=== PATIENT | male | born 1970 | race Caucasian/White ===

== ENCOUNTER 2016-06-08 10:33 | Emergency (ER) | payer OTHER ==
[2016-06-08 10:51] VITALS: BP 131/79; PULSE 91; TEMP 98.5; BMI 21.6
[2016-06-08] MEDS ORDERED: IBUPROFEN 400 MG TABLET (FP) PO ONE ×2 (12:00→12:03)
--- NOTE | 2016-06-08 12:07 | PDOC ---
History of Present Illness - General Chief Complaint: Cold Symptoms Stated Complaint: HEADACHES, SORE THROAT Time Seen by Provider: 06/08/16 11:42 History Source: Patient Exam Limitations: No Limitations - History of Present Illness Initial Comments: 06/08/16 12:05 46 yr male no medical history presents with headache, sore throat, body aches for 3 days.no diarrhea no abd pain or back jorge. Pt states he took ibuprofen yesterday. non smoker, no ETOh use. Past History - Past Medical History Allergies/Adverse Reactions: Allergies Allergy/AdvReac Type Severity Reaction Status Date / Time No Known Allergies Allergy Verified 06/08/16 10:52 Home Medications: Ambulatory Orders NK [No Known Home Medication] 06/08/16 Other medical history: DENIES - Surgical History Other Surgical History: 06/08/16 12:06 none - Immunization History Immunization Up to Date: Yes - Psycho/Social/Smoking Cessation Hx Anxiety: No Suicidal Ideation: No Smoking Status: No Smoking History: Never smoked Number of Cigarettes Smoked Daily: 0 Information on smoking cessation initiated: No Hx Alcohol Use: Yes (occasion) Respiratory Specific PMHX - Complaint Specific PMHX Angina: No Bronchitis: No Pneumonia: No Pulmonary Embolus: No TB (Tuberculosis): No Review of Systems - Review of Systems Able to Perform ROS?: Yes Is the patient limited Chadian proficient: No Constitutional: No: Symptoms Reported HEENTM: Yes: See HPI, Throat Pain. No: Symptoms Reported Respiratory: Yes: Symptoms reported, See HPI, Cough Cardiac (ROS): No: Symptoms Reported ABD/GI: No: Symptoms Reported : No: Symptoms Reported Musculoskeletal: No: Symptoms Reported Neurological: Yes: See HPI, Headache *Physical Exam - Vital Signs Last Vital Signs Temp Pulse Resp BP Pulse Ox 98.5 F 91 H 18 131/79 99 06/08/16 10:48 06/08/16 10:48 06/08/16 10:48 06/08/16 10:48 06/08/16 10:48 - Physical Exam General Appearance: Yes: Nourished, Appropriately Dressed HEENT: positive: EOMI, MARIELLA Neck: positive: Supple. negative: Tender, Rigidity Respiratory/Chest: positive: Lungs Clear, Normal Breath Sounds Cardiovascular: positive: Regular Rhythm, Regular Rate Gastrointestinal/Abdominal: positive: Normal Bowel Sounds, Soft Musculoskeletal: positive: Normal Inspection Extremity: positive: Normal Capillary Refill, Normal Inspection, Normal Range of Motion Integumentary: positive: Normal Color, Dry Neurologic: positive: Fully Oriented, Alert, Normal Mood/Affect, Normal Response , Motor Strength 10/09 Medical Decision Making - Medical Decision Making 06/08/16 12:08 cc: sore throat, cough , headache, body aches non toxic vitals are stable will give ibuprofen lungs CTA , no wheezing or rhonchi *DC/Admit/Observation/Transfer Diagnosis at time of Disposition: Primary cough headache - Discharge Dispostion Disposition: HOME Condition at time of disposition: Good - Referrals Referrals: Augusto May MD [Primary Care Provider] - - Patient Instructions Additional Instructions: drink pleanty of fluids increase vitamin C and Zinc take tylenol 650mg every 4-6hrs for headache you can also take ibuprofen 600mg every 6-8hrs for fever or body aches rest at home avoid crowds follow with your doctor in 3-4 days if not improving return to ER if any worsening symptoms - Post Discharge Activity
== END 2016-06-08 12:14 | disposition home or self-care (01) ==
LOC: JERFT 10:33
DX: G44.83 Primary cough headache (principal)
CPT/HCPCS: 99281-25

== ENCOUNTER 2019-02-27 20:22 | Emergency (ER) | payer OTHER ==
[2019-02-27 20:28] VITALS: BP 129/78; PULSE 72; TEMP 98.8; BMI 22.3
[2019-02-27] MEDS ORDERED: ACETAMINOPHEN 500 MG TABLET (FP) PO ONE (21:05)
--- NOTE | 2019-02-27 21:40 | PDOC ---
History of Present Illness - General Chief Complaint: Injury Stated Complaint: RIGHT FOOT INJURY Time Seen by Provider: 02/27/19 20:58 History Source: Patient Exam Limitations: No Limitations - History of Present Illness Initial Comments: 02/27/19 21:36 HISTORY OF PRESENT ILLNESS: This a 49-year-old male denies medical history of presents emergency department for evaluation of right ankle pain after playing soccer yesterday. Patient reports he went to kick the ball and accidentally stepped in a hole causing an eversion of his right foot. Patient was seen by her customer trainer who put a Obed wrap and makeshift splint on his ankle. He was told not to walk for 4 days and then to be reevaluated. Patient was concerned that he heard a crack and no x-rays were performed. Patient is having difficult time bearing weight on his right ankle since the injury. No recent travel or sick contacts. PAST MEDICAL HISTORY: Denies past medical history SURGICAL HISTORY: Denies ALLERGIES: No known drug allergies REVIEW OF SYSTEMS General/Constitutional: Denies fever or chills. Denies weakness, weight change. HEENT: Denies change in vision. Denies ear pain or discharge. Denies sore throat. Cardiovascular: Denies chest pain or shortness of breath. Respiratory: Denies cough, wheezing, or hemoptysis. Gastrointestinal: Denies nausea, vomiting, diarrhea or constipation. Denies rectal bleeding. Genitourinary: Denies dysuria, frequency, or change in urination. Musculoskeletal: see HPI Skin and breasts: Denies rash or easy bruising. Neurologic: Denies headache, vertigo, loss of consciousness, or loss of sensation. Psychiatric: Denies depression or anxiety. Endocrine: Denies increased thirst. Denies abnormal weight change. Hematologic/Lymphatic: Denies anemia, easy bleeding, or history of blood clots. Allergic/Immunologic: Denies hives or skin allergy. Denies latex allergy. PHYSICAL EXAM General Appearance: Well-appearing, appropriately dressed. No apparent distress , no intoxication. Respiratory/Chest: Lungs CTAB. No shortness of breath, chest tenderness, respiratory distress, accessory muscle use. No crackles, rales, rhonchi, stridor , wheezing, dullness Cardiovascular: RRR. S1, S2. No JVD, murmur, bradycardia, tachycardia. Vascular Pulses: Dorsalis-Pedis (R): 2+, Dorsalis-Pedis (L): 2+ Musculoskeletal/Extremities: Tender to palpation over the lateral malleolus of the right ankle. No palpable deformity, crepitus or step-off is present. Patient also with increased pain with palpation over the proximal fibula. Decreased range of motion with flexion and dorsiflexion of the right ankle. Full range of motion of the right knee. Neurovascularly intact. Integumentary: Appropriate color, dry, warm. No cyanosis, erythema, jaundice or rash Neurologic: song writer II-XII intact. Fully oriented, alert. Appropriate mood/affect. Motor strength 5/5. No appreciable EOM palsy, facial droop or sensory deficit. Past History - Past Medical History Allergies/Adverse Reactions: Allergies Allergy/AdvReac Type Severity Reaction Status Date / Time No Known Allergies Allergy Verified 03/01/19 09:08 Home Medications: Ambulatory Orders Ibuprofen 1 tab PO DAILY 03/01/19 COPD: No - Immunization History Immunization Up to Date: Yes - Psycho Social/Smoking Cessation Hx Smoking Status: No Smoking History: Never smoked Number of Cigarettes Smoked Daily: 0 Hx Alcohol Use: Yes (occasion) *Physical Exam - Vital Signs Last Vital Signs Temp Pulse Resp BP Pulse Ox 98.8 F 72 18 129/78 95 02/27/19 20:26 02/27/19 20:26 02/27/19 20:26 02/27/19 20:26 02/27/19 20:26 Procedures - Consent Consent obtained: Verbal, From Patient - Splinting Splint Location: Right: Ankle Pre-Proc Neuro Vasc Exam: normal Hand-Made Type: orthoglass Splint Type: Yes: Sugar Tong (right ankle) Post-Proc Neuro Vasc Exam: normal, unchanged from pre-exam Complications: No ED Treatment Course - RADIOLOGY Radiology Studies Ordered: Category Date Time Status ANKLE & FOOT-RIGHT* [RAD] Stat Radiology 02/27/19 21:05 Ordered LEG TIB/FIB-RIGHT [RAD] Stat Radiology 02/27/19 21:05 Ordered Medical Decision Making - Medical Decision Making 02/27/19 21:39 A/P: 49-year-old male right ankle pain status post eversion of the right foot Based on physical exam, there is a high likelihood of a fracture. X-ray of the right ankle, foot and tib-fib Tylenol 1g orally now Reassess 02/27/19 21:40 02/27/19 22:01 X-rays as read by Dr. Osborne: Fracture distal fibula with tibial talo dislocation. Splint-see procedure note for details Discharge home to follow-up with orthopedist within the next 24 hours. 02/27/19 22:18 *DC/Admit/Observation/Transfer Diagnosis at time of Disposition: Fibula fracture Qualifiers: Encounter type: initial encounter Fibula location: distal Fracture type: closed Fracture morphology: unspecified fracture morphology Laterality: right Qualified Code(s): S82.831A - Other fracture of upper and lower end of right fibula, initial encounter for closed fracture - Discharge Dispostion Disposition: HOME Condition at time of disposition: Stable Decision to Admit order: No - Referrals Referrals: Augusto May MD [Primary Care Provider] - Evangelista Daly MD [Staff Physician] - - Patient Instructions Additional Instructions: Rest. Take Tylenol or Motrin as needed for pain. Follow manufacturers instructions for appropriate dosage. Whenever possible keep your foot elevated. You've been given the number for an orthopedist. You must be evaluated on 02/28. Return to emergency department for discoloration of the foot, numbness or tingling to the foot, worsening pain, or any other concerns. Thank you very much for choosing us to provide your emergent healthcare needs. - Post Discharge Activity Discharge - Discharge Information Problems reviewed: Yes Clinical Impression/Diagnosis: Fibula fracture Qualifiers: Encounter type: initial encounter Fibula location: distal Fracture type: closed Fracture morphology: unspecified fracture morphology Laterality: right Qualified Code(s): S82.831A - Other fracture of upper and lower end of right fibula, initial encounter for closed fracture Condition: Stable Disposition: HOME - Follow up/Referral Referrals: Evangelista Daly MD [Staff Physician] - Augusto May MD [Primary Care Provider] - - Patient Discharge Instructions Additional Instructions: Rest. Take Tylenol or Motrin as needed for pain. Follow manufacturers instructions for appropriate dosage. Whenever possible keep your foot elevated. You've been given the number for an orthopedist. You must be evaluated on 02/28. Return to emergency department for discoloration of the foot, numbness or tingling to the foot, worsening pain, or any other concerns. Thank you very much for choosing us to provide your emergent healthcare needs. - Post Discharge Activity
[2019-02-27] MEDS ORDERED: ACETAMINOPHEN 500 MG TABLET (FP) ONE (21:42)
== END 2019-02-27 22:18 | disposition home or self-care (01) ==
LOC: JERFT 20:22
PROC: 2W3QX1Z Immobilization of Right Lower Leg using Splint (ICD-10-PCS; principal; 2019-02-27)
DX: S82.831A Other fracture of upper and lower end of right fibula, initial encounter for closed fracture (principal); X50.1XXA Overexertion from prolonged static or awkward postures, initial encounter; Y93.66 Activity, soccer; Y92.322 Soccer field as the place of occurrence of the external cause; Y99.8 Other external cause status
CPT/HCPCS: 73590-TC-RT-FY; 73610-TC-RT-FY; 73630-TC-RT-FY; 99283-25

== ENCOUNTER 2019-03-02 08:16 | Day surgery (SDC) | payer OTHER ==
[2019-03-01 09:13] VITALS: BMI 22.3
[2019-03-02] MEDS ORDERED: ROPIVACAINE HCL 0.5% 30ML VIAL ONE (08:51)
[2019-03-02] MEDS ORDERED: MIDAZOLAM HCL 2 MG/2 ML SINGLE DOSE VIAL ONE ×3 (08:51→11:22)
[2019-03-02] MEDS ORDERED: oxyCODONE HCL 5 MG TABLET PO PRN ×2 (08:52)
[2019-03-02] MEDS ORDERED: ONDANSETRON 4 MG/2 ML VIAL IVPUSH PRN (08:52)
[2019-03-02] MEDS ORDERED: LACTATED RINGERS SOLUTION 1,000 ML IV SCH (09:00)
[2019-03-02] MEDS ORDERED: DEXAMETHASONE SOD PHOSPHATE/PF 10 MG/ML SDV ONE (09:49)
[2019-03-02] MEDS ORDERED: KETOROLAC TROMETHAMINE 30 MG/1 ML VIAL ONE (10:22)
[2019-03-02] MEDS ORDERED: DEXAMETHASONE SOD PHOSPHATE 4 MG/1 ML VIAL ONE (10:22)
[2019-03-02] MEDS ORDERED: ceFAZolin SODIUM 1 GM VIAL ONE (10:26)
[2019-03-02] MEDS ORDERED: ACETAMINOPHEN 1000 MG/100 ML VIAL (NON FORMULARY) IVPB ONE (12:15)
[2019-03-02] MEDS ORDERED: ACETAMINOPHEN INJECTION 100 ML IVPB ONE (12:54)
--- NOTE | 2019-03-02 13:22 | OP ---
Operative Note - Note: Operative Date: 03/02/19 Pre-Operative Diagnosis: right distal fibular fracture Operation: right distal fibula ORIF Implants: arthrex distal fibular plate Post-Operative Diagnosis: Same as Pre-op Surgeon: Chauncey Mireles Anesthesiologist/CLINICAL QUALITY ANALYST: Jero Perry Anesthesia: Spinal, Fractional Estimated Blood Loss (mls): 50 Operative Report Dictated: Yes
[2019-03-02 13:47] VITALS: TEMP 98.3
--- NOTE | 2019-03-02 14:05 | OP ---
DATE OF OPERATION: 03/02/2019 PREOPERATIVE DIAGNOSIS: Right distal fibular fracture. POSTOPERATIVE DIAGNOSIS: Right distal fibular fracture. PROCEDURE: Right distal fibula open reduction internal fixation. SURGEON: Chauncey Mireles MD OCEANOGRAPHER GEOLOGICAL: None. IMPLANTS: Arthrex distal fibular plate with 2.7-mm locking and 3.5-mm nonlocking screws as well as 1 x 4.0 cannulated screw. ANESTHESIA: Spinal plus regional. POSTOPERATIVE CONDITION: Stable. COMPLICATIONS: None. BLOOD LOSS: 50 mL. INDICATIONS: This is a pleasant 49-year-old gentleman who injured his ankle when he was playing soccer. He was found to have an ankle fracture along with subluxation of the ankle joint. Treatment options including nonoperative versus operative management were reviewed. Operative risks were reviewed in detail including bleeding, infection, neurovascular injury, need for further surgery, postoperative pain and stiffness, nonunion, malunion, hardware failure or cut out. We discussed medical risks such as heart attack, stroke, DVT, PE, and . I addressed the use of perioperative antibiotic and DVT prophylaxis. I reviewed the postoperative rehabilitation protocol. I addressed all of the patient's questions regarding the surgery. We reviewed the use of perioperative antibiotic and DVT prophylaxis. Patient voiced understanding and elected to proceed. DESCRIPTION OF PROCEDURE: Patient was brought to the operating room where spinal anesthetic was administered. He had previously been given a block in the preoperative holding area. The left lower extremity was now prepped and draped in the usual sterile fashion. A preoperative dose of antibiotics was given, and the usual time-out procedure was performed. Incision was now planned out over the fibular fracture in line with the fibula. Distally, this was carried full thickness and more proximally just through the skin to the subcutaneous tissue. Blunt spreading was then proximally to expose the fracture site. The fracture was noted to be widely displaced. The fracture site was irrigated. Utilizing a 15 blade, the periosteum was elevated anteriorly and posteriorly. Initially, an attempt was made at reducing the fracture. However, it failed to adequately reduce, and the mortis was sitting in an unreduced position. Multiple attempts were made; however, these were unsuccessful. The decision was now made to inspect the joint medially. An incision was now planned out over the medial gutter. This was carried down through the skin to subcutaneous tissue. Spreading was now used to dissect through the subcutaneous tissue and expose the capsule, which was already injured from the subluxation. The joint was inspected here, and there was no loose body or tendon subluxation seen. The talus was now reduced to fully medial; however, the fibula would still not reduce into its anatomic location. The attention was then turned back laterally. The lateral malleolar fragment was then pushed posterior, and the ankle was subluxed posteriorly. A finger was used to inspect the posterior aspect of the joint. Here, the fragment at the posterior malleolus was noted to be stuck within the joint. After freeing up this fragment, it was possible to reduce the fibula anatomically. It should be noted that prior to making the medial incision, the tourniquet was inflated to 250 mmHg after exsanguination. At this point, the fibula was clamped in anatomic reduction. A lag screw was placed with moderate purchase. A neutralization plate was then chosen and applied to the lateral aspect of the fibula. It was affixed proximally using two 3.5-mm cortical screws. The most distal of the proximal screws was noted to have moderate purchase and was changed out for a cannulated screw, which had excellent purchase. Distally, the screws were in locking fashion. Unicortical technique was used. At this point, the wound was irrigated. The fluoroscopy was used to verify both fracture reduction and hardware placement. Both were satisfactory. A live external short rotation stress test was performed, and no widening was seen. The fascia was now closed using 0 Vicryl. The subcutaneous tissue was approximated using 3-0 Vicryl. The skin was closed using 4-0 nylon. Sterile dressings were placed. The tourniquet was let down. The patient was placed into a well-padded short leg cast. The cast was bivalve. He was transferred to the recovery room in stable condition. Clemente [id number]
[2019-03-02 17:10] VITALS: BP 132/85; PULSE 66
== END 2019-03-02 16:40 | disposition home or self-care (01) ==
LOC: FASU 08:16
PROVIDERS: ATTEND Orthopaedic Surgery Sports Medicine
PROC: 0QSJ04Z Reposition Right Fibula with Internal Fixation Device, Open Approach (ICD-10-PCS; principal; 2019-03-02 10:44)
DX: S82.61XA Displaced fracture of lateral malleolus of right fibula, initial encounter for closed fracture (principal); X58.XXXA Exposure to other specified factors, initial encounter; Y93.66 Activity, soccer; Y92.322 Soccer field as the place of occurrence of the external cause
CPT/HCPCS: 73610-TC-RT-FY; 76000-TC-FY; J0131

== ENCOUNTER 2021-11-09 11:30 | Emergency (ER) | payer OTHER ==
[2021-11-09 11:51] VITALS: BP 149/94; PULSE 63; TEMP 97; BMI 22.3
[2021-11-09] MEDS ORDERED: METOCLOPRAMIDE HCL INJECTION 10 MG/2 ML VIAL IVPB ONE (12:52)
[2021-11-09 13:21] LABS: BASO % 0.7 % (0-2.0); HEMOGLOBIN 14.5 GM/dL (11.7-16.9); LYMPH % 34.9 % (8-40); MCH 28.9 pg (25.7-33.7); MCHC 32.9 g/dl (32.0-35.9); MEAN CELL VOLUME 87.8 fl (80-96); MONO % 10.5 % (3.8-10.2); NEUT % 52.9 % (42.8-82.8); PLATELET COUNT 262 10^3/uL (134-434); RBC 5.01 M/mm3 (4.00-5.60); RDW 13.2 % (11.9-15.9); WHITE BLOOD COUNT 4.5 K/mm3 (4.0-10.0)
[2021-11-09 13:34] LABS: ALBUMIN 4.1 g/dl (3.4-5.0)
[2021-11-09 13:37] LABS: CREATININE 0.9 mg/dL (0.55-1.3)
[2021-11-09 13:38] LABS: TOT PROT 8.1 g/dl (6.4-8.2)
[2021-11-09 13:39] LABS: BILIRUBIN,TOTAL 0.5 mg/dL (0.2-1)
[2021-11-09] MEDS ORDERED: METOCLOPRAMIDE HCL INJECTION 10 MG/2 ML VIAL ONE (13:48)
[2021-11-09 14:01] LABS: ACTIVATED PTT 39.6 SECONDS (25.2-36.5)
[2021-11-09] MEDS ORDERED: ACETAMINOPHEN 1000 MG/100 ML BAG IVPB ONE (14:25)
[2021-11-09 14:40] LABS: INR 1.01 (0.83-1.09); PROTHROMBIN TIME (PATIENT) 11.6 SEC (9.7-13.0)
== END 2021-11-09 15:27 | disposition home or self-care (01) ==
LOC: JER 11:30
PROC: 3E033GC Introduction of Other Therapeutic Substance into Peripheral Vein, Percutaneous Approach (ICD-10-PCS; principal; 2021-11-09)
DX: R20.2 Paresthesia of skin (principal); R51.9 Headache, unspecified; H53.8 Other visual disturbances
CPT/HCPCS: 36415; 70450-TC; 80053; 82962; 85025; 85610; 85730; 93005; 93010; 99285-25

== ENCOUNTER 2022-02-17 16:17 | Emergency (ER) | payer OTHER ==
[2022-02-17 16:35] VITALS: BP 138/85; PULSE 66; RESP 17; TEMP 98.1; BMI 22.0
[2022-02-17] MEDS ORDERED: ACETAMINOPHEN 325 MG TABLET (FP) PO ONE (19:27)
[2022-02-17] MEDS ORDERED: ACETAMINOPHEN 325 MG TABLET (FP) ONE (20:22)
== END 2022-02-17 22:57 | disposition home or self-care (01) ==
LOC: JER 16:17
DX: R51.9 Headache, unspecified (principal); H53.8 Other visual disturbances; R20.2 Paresthesia of skin
CPT/HCPCS: 70450-TC; 99284-25

== ENCOUNTER 2024-06-01 12:05 | Emergency (ER) | payer BC, OTHER ==
[2024-06-01 13:22] VITALS: BP 158/96; PULSE 76; RESP 18; TEMP 98.2; BMI 22.3
[2024-06-01] MEDS ORDERED: ACETAMINOPHEN 500 MG TABLET (FP) ONE (14:22)
[2024-06-01] MEDS: ACETAMINOPHEN 500 MG TABLET (FP) PO ONE (14:23)
[2024-06-01 15:10] LABS: THROAT:GRP A STREP NOT DETECTED (NOTDETECTED)
[2024-06-01 16:07] LABS: HIV INTERPRETATION NEGATIVE (NEGATIVE)
== END 2024-06-01 17:30 | disposition home or self-care (01) ==
LOC: JERFT 12:05
DX: R05.9 Cough, unspecified (principal); R51.9 Headache, unspecified; J06.9 Acute upper respiratory infection, unspecified; Z20.822 Contact with and (suspected) exposure to COVID-19
CPT/HCPCS: 0241U-QW; 36415; 86803; 87389; 87651; 99283-25